=== PATIENT | male | born 1965 | race Caucasian/White ===

== ENCOUNTER → 2016-06-19 | Outpatient (CLI) | payer BC ==
--- NOTE | 2016-06-19 17:55 | REP ---
CHEST, TWO VIEWS: No comparisons. There is no evidence of acute infiltrate. No pleural effusion is seen. The heart is normal in size. The mediastinal silhouette is unremarkable. The visualized osseous structures are intact. There are mild degenerative changes of the spine. IMPRESSION: No acute pulmonary disease. Signed by Sundeep Mcmanus MD 06/20/2016 03:20 P
== END ==
LOC: M WUC 16:49
PROVIDERS: ATTEND Physician Assistant
DX: J20.9 Acute bronchitis, unspecified (principal)

== ENCOUNTER 2017-05-11 09:34 | Day surgery (SDC) | payer BC ==
[2017-05-11] MEDS: NS 1,000 ML IV (09:45)
[2017-05-11] MEDS ORDERED: PROPOFOL 200 MG/20 ML VIAL As Ordered (10:32)
[2017-05-11] MEDS ORDERED: fentaNYL 100 MCG/2 ML INJECTION (J3010) As Ordered (10:32)
[2017-05-11] MEDS ORDERED: LIDOCAINE 2% INJ 100 MG/5 ML SDV (FOR ANES.) As Ordered (10:32)
== END 2017-05-11 11:45 | disposition home or self-care (01) ==
LOC: M OPP 09:34
DX: Z12.11 Encounter for screening for malignant neoplasm of colon (principal); K64.0 First degree hemorrhoids; D12.2 Benign neoplasm of ascending colon; R12 Heartburn; K22.8 Other specified diseases of esophagus; F17.210 Nicotine dependence, cigarettes, uncomplicated; R06.83 Snoring
CPT/HCPCS: 45380

== ENCOUNTER → 2019-08-16 | Outpatient (CLI) | payer BC ==
[~2019-08-16] MED LIST: ADDE30CA3 PO; FLON1SPR; PRIL20TA2 PO
--- NOTE | 2019-08-17 03:46 | REP ---
Clinical: Sprain. Technique: AP, lateral, bilateral oblique views of the left foot. Findings: Generalized age-related changes are appreciated. No acute fracture or dislocation of the foot noted. However, there is an obvious fracture involving the distal fibular shaft. Impression: 1. Appears intact and age appropriate. 2. Fracture of the distal fibular shaft at the ankle. Electronically Signed by Karthikeyan May MD 08/17/2019 03:37 A
--- NOTE | 2019-08-17 03:48 | REP ---
Clinical: Trauma. Technique: AP, lateral, bilateral oblique views of the left ankle. Findings: There is an oblique fracture of the distal fibular metadiaphysis with overlying soft tissue swelling. No other acute fracture or dislocation appreciated. Impression: Oblique fracture of the distal fibular metadiaphysis. Electronically Signed by Karthikeyan May MD 08/17/2019 03:40 A
== END ==
LOC: M WUC 15:12
PROVIDERS: ATTEND Physician Assistant
DX: S82.432A Displaced oblique fracture of shaft of left fibula, initial encounter for closed fracture (principal); X58.XXXA Exposure to other specified factors, initial encounter; Y92.9 Unspecified place or not applicable

== ENCOUNTER → 2019-08-22 | Outpatient (CLI) | payer BC | LOC: M LABSMTC 11:24 | PROVIDERS: ATTEND Anesthesiology | DX: Z01.818 Encounter for other preprocedural examination (principal); Z11.59 Encounter for screening for other viral diseases | CPT/HCPCS: C9803; U0003 ==

== ENCOUNTER 2019-08-25 10:22 | Day surgery (SDC) | payer BC ==
[~2019-08-25] VITALS: Ht 175.3 cm; Wt 93.9 kg
[~2019-08-25 10:22] MED LIST changes: +ACETAMINOPHEN 1000MG 100ML IV BTL (OFIRMEV) (J0131 PER 10MG) As Ordered ONE; +KETOROLAC 60MG 2ML VIAL As Ordered ONE; +LIDOCAINE 1% MDV 20ML VIAL SQ PRN; +LIDOCAINE PRES-FREE 2% 10ML AMP As Ordered ONE; +LR 1,000 ML IV ONE; +MIDAZOLAM INJ 2MG/2ML VIAL (J2250 PER 1MG) As Ordered ONE; +ONDANSETRON 4MG/2ML VIAL As Ordered ONE; +ROCURONIUM BROMIDE 50 MG/5 ML VIAL As Ordered ONE; +SUGAMMADEX SODIUM 500 MG/5 ML VIAL (BRIDION) As Ordered ONE; +ceFAZolin SOD 2 GM in IV 1 EA IV ONE; +dexameTHASONE 4 MG/ML 1ML VIAL (J1100 PER 1MG) As Ordered ONE; +fentaNYL 100 MCG/2 ML INJECTION (J3010) As Ordered ONE; +propofoL 200 MG/20 ML VIAL As Ordered ONE
[2019-08-25] MEDS ORDERED: ROPIvacaine 0.5% 30ML INJECTION (J2795 PER 1MG) ONE (10:23)
[2019-08-25] MEDS ORDERED: LIDOCAINE 1% MDV 20ML VIAL ONE (10:23)
[2019-08-25] MEDS ORDERED: dexameTHASONE 10MG/1ML VIAL PRES.FREE (J1100 PER 1MG) ONE (10:23)
--- NOTE | 2019-08-25 11:07 | ECGEPIP ---
[facility] Test Date: 2019-08-25 Pat Name: MANNY ZAMUDIO Department: Room: - Gender: Male Feeder Loader: BIANCA : 1965 Requested By: LIVIER Gonzales Order Number: [id number] Reading MD: Timo Romano Measurements Intervals Lyman Rate: 65 P: 31 CA: 158 QRS: 42 QRSD: 94 T: 35 QT: 391 QTc: 409 Interpretive Statements Normal sinus rhythm Normal EKG Comparison tracing not on file Electronically Signed on 08-25-2019 11:06:51 EDT by Timo Romano
[2019-08-25] MEDS ORDERED: fentaNYL 100 MCG/2 ML INJECTION (J3010) As Ordered ONE (11:30)
[2019-08-25] MEDS ORDERED: MIDAZOLAM INJ 2MG/2ML VIAL (J2250 PER 1MG) As Ordered ONE (11:30)
[2019-08-25] MEDS: fentaNYL 100 MCG/2 ML INJECTION (J3010) IV SCH ×2 (11:52→11:55)
[2019-08-25] MEDS: MIDAZOLAM INJ 2MG/2ML VIAL (J2250 PER 1MG) IV SCH ×2 (11:53→11:55)
[2019-08-25] MEDS ORDERED: propofoL 200 MG/20 ML VIAL As Ordered ONE (12:55)
[2019-08-25] MEDS ORDERED: fentaNYL 100 MCG/2 ML INJECTION (J3010) IV PRN (14:00)
[2019-08-25] MEDS ORDERED: LR 1,000 ML IV SCH (14:00)
[2019-08-25] MEDS ORDERED: oxyCODONE 5MG TAB PO PRN ×2 (14:00)
[2019-08-25] MEDS ORDERED: ONDANSETRON 4MG/2ML VIAL IV PRN (14:00)
--- NOTE | 2019-08-25 14:28 | RO ---
DATE OF PROCEDURE: 08/25/2019 PREOPERATIVE DIAGNOSIS: Left distal fibula fracture with bimalleolar equivalent. POSTOPERATIVE DIAGNOSIS: Left distal fibula fracture with bimalleolar equivalent. PROCEDURE: Open reduction and internal fixation of lateral malleolus with stressed examination. SURGEON: Dr. Madhu Peralta MANAGER WOMEN: Charles Davis PA-C, who was essential for retraction during putnam portions of the procedure. ANESTHESIA: Spinal. INDICATIONS: This is a 54-year-old male who had an unstable distal fibula fracture with medial gap widening. We discussed the risks and benefits of surgical intervention including but not limited to infection, damage to surrounding structures, incomplete relief, malunion, nonunion, and ankle stiffness. The patient wished to proceed. He is also a smoker. We counseled on smoking cessation and increased risk of infection and decreased risk of bone healing with smoking. PREOPERATIVE ANTIBIOTICS: 2 grams of Ancef. TOURNIQUET TIME: 45 minutes. COMPLICATIONS: None. BLOOD LOSS: Minimal. OPERATIVE DESCRIPTION: The patient was brought back to the operating room (OR) in the supine position. Underwent spinal anesthesia, then sedation. We then prepped and draped the left ankle in the usual fashion. We had time-out confirming site, side, and surgery. We elevated the tourniquet up to 250 mmHg after exsanguination. We then made a lateral-based incision directly over the lateral malleolus. Sharply dissected down to bone. Careful to monitor for superficial peroneal nerve. Once we identified the fracture site, we sharply debrided this using the #15 blade curette. Irrigation subsequently. We then used a [id number] reduction clamp to reduce the fracture. We then placed a 2.7 lag screw from posterior to anterior, holding it in place. We then structured a one-third tubular plate as a neutralization plate and placed it over top. Three cortical screws proximally, one cortical screw and two locking screws distally, at which point we then took our final films, AP and lateral. We were happy with our reduction and fixation. We then did a stress examination on the AP after obtaining a mortise. We stressed the ankle with external rotation. Medial opening did not occur. Therefore, there was no need to fix the syndesmosis. At this point, we irrigated the wound thoroughly, closed the peroneal fascia over top of the fracture in the plate with 3-0 Vicryl. Subcutaneous tissue with 3-0 Vicryl and skin with 3-0 nylon. The patient was then placed in a posterior splint after dressing of Adaptic gauze and Webril. The tourniquet was let down. The patient was awakened, taken to postanesthesia care unit (PACU) in stable condition. POSTOPERATIVE PLAN: The patient will be nonweightbearing for approximately 6 weeks. After 2 weeks, we will assess the incision, likely remove sutures, and with a CAM boot. At 6 weeks postoperative, he can start weightbearing as tolerated as long as healing is progressing as planned.
--- NOTE | 2019-08-25 14:48 | REP ---
LEFT ANKLE: Three views. HISTORY: Distal fibular fracture. Comparison ankle radiographs are from August 16, 2019. 60 seconds of fluoroscopy time is reported. FINDINGS: A sequence of three last image hold fluoroscopically obtained spot radiographs of the left ankle document screw plate fixation placement for distal fibular fracture. Electronically Signed by Abdulaziz Cunha MD 08/25/2019 03:03 P
[2019-08-25 17:36] VITALS: BP 154/87
== END 2019-08-25 17:45 | disposition home or self-care (01) ==
LOC: M SDC 10:22
PROVIDERS: ATTEND Orthopaedic Surgery Hand Surgery
DX: S82.842A Displaced bimalleolar fracture of left lower leg, initial encounter for closed fracture (principal); X58.XXXA Exposure to other specified factors, initial encounter; Y92.89 Other specified places as the place of occurrence of the external cause; Y93.9 Activity, unspecified; Y99.9 Unspecified external cause status; K21.9 Gastro-esophageal reflux disease without esophagitis; F17.218 Nicotine dependence, cigarettes, with other nicotine-induced disorders; Z79.899 Other long term (current) drug therapy
CPT/HCPCS: 27792; 64445; 76000; 93005; C1713; J0690; J1100; J2250; J2405; J2795; J3010

== ENCOUNTER → 2019-09-20 | Outpatient (REF) | payer BC ==
[~2019-09-20] MED LIST changes: -ACETAMINOPHEN 1000MG 100ML IV BTL (OFIRMEV) (J0131 PER 10MG) As Ordered ONE; -KETOROLAC 60MG 2ML VIAL As Ordered ONE; -LIDOCAINE 1% MDV 20ML VIAL SQ PRN; -LIDOCAINE PRES-FREE 2% 10ML AMP As Ordered ONE; -LR 1,000 ML IV ONE; -MIDAZOLAM INJ 2MG/2ML VIAL (J2250 PER 1MG) As Ordered ONE; -ONDANSETRON 4MG/2ML VIAL As Ordered ONE; -ROCURONIUM BROMIDE 50 MG/5 ML VIAL As Ordered ONE; -SUGAMMADEX SODIUM 500 MG/5 ML VIAL (BRIDION) As Ordered ONE; -ceFAZolin SOD 2 GM in IV 1 EA IV ONE; -dexameTHASONE 4 MG/ML 1ML VIAL (J1100 PER 1MG) As Ordered ONE; -fentaNYL 100 MCG/2 ML INJECTION (J3010) As Ordered ONE; -propofoL 200 MG/20 ML VIAL As Ordered ONE
== END ==
LOC: M LAB REF 11:10
PROVIDERS: ATTEND Physician Assistant
DX: S82.842D Displaced bimalleolar fracture of left lower leg, subsequent encounter for closed fracture with routine healing (principal); X58.XXXD Exposure to other specified factors, subsequent encounter; Y92.89 Other specified places as the place of occurrence of the external cause

== ENCOUNTER → 2020-07-10 | Outpatient (CLI) | payer BC ==
--- NOTE | 2020-07-10 14:16 | REP ---
INDICATION: PAIN COMPARISON: None. TECHNIQUE: AP, lateral, flexion/extension, bilateral oblique, and open-mouth views. FINDINGS: Straightening of normal lordosis noted with stable alignment. Focal early advanced degenerative changes at C6-7 include endplate sclerosis, disc space narrowing, and marginal osteophytosis. Remainder of the examination appears age-appropriate and normal. No acute fracture/compression injury or subluxation. IMPRESSION: Focal early advanced degenerative changes at C6-7. <Electronically signed by Karthikeyan May > 07/10/20 1290
== END ==
LOC: M WUC 13:47
PROVIDERS: ATTEND Physician Assistant Medical
DX: M50.323 Other cervical disc degeneration at C6-C7 level (principal)

== ENCOUNTER → 2021-10-22 | Outpatient (CLI) | payer BC | LOC: M WUC 11:23 | PROVIDERS: ATTEND Registered Nurse | DX: R53.83 Other fatigue (principal); Z86.16 Personal history of COVID-19; F17.210 Nicotine dependence, cigarettes, uncomplicated ==

== ENCOUNTER → 2022-01-17 | Outpatient (REF) | payer BC | LOC: M LAB REF 13:03 | PROVIDERS: ATTEND Registered Nurse | DX: E11.9 Type 2 diabetes mellitus without complications (principal); D48.5 Neoplasm of uncertain behavior of skin ==